=== PATIENT | male | born 1975 | race Caucasian/White ===

== ENCOUNTER 2018-01-21 07:03 | Emergency (ER) | payer OTHER ==
[~2018-01-21] VITALS: Ht 188 cm; Wt 97.7 kg
[2018-01-21] MEDS ORDERED: CEPH500 PO (08:03)
[2018-01-21 08:33] LABS: BASOPHILS % (AUTO) 0.4 % (0.0-2.0); EOSINOPHILS % (AUTO) 2.1 % (1.0-6.0); HEMATOCRIT 43.5 % (41-53); HEMOGLOBIN 14.8 g/dL (13.5-17.5); LYMPHOCYTES # (AUTO) 1.7 K/uL (1.0-4.8); LYMPHOCYTES % (AUTO) 28.4 % (22.0-44.0); MEAN CORPUSCULAR HEMOGLOBIN 29.6 pg (26.0-34.0); MEAN CORPUSCULAR VOLUME 87 fL (80-100); MONOCYTES # (AUTO) 0.4 K/uL (0.1-1.0); MONOCYTES % (AUTO) 7.1 % (2.0-9.0); NEUTROPHILS # (AUTO) 3.8 K/uL (1.8-7.7); PLATELET COUNT (AUTO) 222 K/uL (150-450); RED BLOOD CELL COUNT(AUTO) 4.99 MIL/uL (4.50-5.90); RED CELL DISTRIBUTION WIDTH 13.4 % (11.5-14.5)
[2018-01-21 08:44] LABS: AMPHET/METH SCREEN,URINE POSITIVE (NEGATIVE); BARBITURATE SCREEN, URINE NEGATIVE (NEGATIVE); BENZODIAZEPINES SCREEN,URINE NEGATIVE (NEGATIVE); CANNABINOID SCREEN,URINE NEGATIVE (NEGATIVE); COCAINE SCREEN,URINE NEGATIVE (NEGATIVE); METHADONE SCREEN, URINE NEGATIVE (NEGATIVE); OPIATE SCREEN,URINE NEGATIVE (NEGATIVE)
[2018-01-21 08:47] LABS: PHENCYCLIDINE SCREEN,URINE NEGATIVE (NEGATIVE)
[2018-01-21 08:51] LABS: ANION GAP 9 mmol/L (8-16); CALCIUM, TOTAL 8.8 mg/dL (8.8-10.5); CARBON DIOXIDE 27 mmol/L (22-29); CHLORIDE 107 mmol/L (98-107); CREATININE 0.75 mg/dL (0.60-1.30); GLOMERULAR FILTR. RATE CALC > 60 mL/min (>60); GLUCOSE,RANDOM 105 mg/dL (70-110); POTASSIUM 3.7 mmol/L (3.5-5.1); SODIUM SERUM 143 mmol/L (136-145); UREA NITROGEN, BLOOD 16 mg/dL (7-18)
[2018-01-21 08:58] LABS: ALANINE AMINOTRANSFERASE 38 U/L (12-78); ALBUMIN 3.8 g/dL (3.4-5.0); ALKALINE PHOSPHATASE 63 U/L (46-116); ASPARTATE AMINOTRANSFERASE 25 U/L (15-37); BILIRUBIN,TOTAL 0.5 mg/dL (0.1-1.0); TOTAL PROTEIN, SERUM 7.1 g/dL (6.4-8.2)
[2018-01-21 09:59] VITALS: BP 124/75
== END 2018-01-21 10:24 | disposition home or self-care (01) ==
LOC: EMS 07:05
DX: F31.9 Bipolar disorder, unspecified (principal); Z59.0 Homelessness
CPT/HCPCS: 36415; 80053; 80307; 85025; 99285; G0480

== ENCOUNTER 2018-06-04 11:27 | Inpatient (IN) | payer MEDICAID, OTHER ==
[~2018-06-04] VITALS: Ht 188 cm; Wt 94.8 kg
[~2018-06-04 11:27] MED LIST: CEPH500 PO
[2018-06-04 13:08] LABS: AMPHET/METH SCREEN,URINE POSITIVE (NEGATIVE); BARBITURATE SCREEN, URINE NEGATIVE (NEGATIVE); BENZODIAZEPINES SCREEN,URINE NEGATIVE (NEGATIVE); CANNABINOID SCREEN,URINE NEGATIVE (NEGATIVE); COCAINE SCREEN,URINE NEGATIVE (NEGATIVE); METHADONE SCREEN, URINE NEGATIVE (NEGATIVE); OPIATE SCREEN,URINE NEGATIVE (NEGATIVE)
[2018-06-04 13:09] LABS: PHENCYCLIDINE SCREEN,URINE NEGATIVE (NEGATIVE)
[2018-06-04 13:11] LABS: BASOPHILS % (AUTO) 0.7 % (0.0-2.0); EOSINOPHILS % (AUTO) 1.7 % (1.0-6.0); HEMATOCRIT 43.4 % (41-53); HEMOGLOBIN 14.6 g/dL (13.5-17.5); LYMPHOCYTES # (AUTO) 1.9 K/uL (1.0-4.8); LYMPHOCYTES % (AUTO) 27.4 % (22.0-44.0); MEAN CORPUSCULAR HEMOGLOBIN 29.2 pg (26.0-34.0); MEAN CORPUSCULAR HGB CONC 33.6 G/dL (31.0-37.0); MEAN CORPUSCULAR VOLUME 87 fL (80-100); MONOCYTES # (AUTO) 0.5 K/uL (0.1-1.0); MONOCYTES % (AUTO) 7.3 % (2.0-9.0); NEUTROPHILS # (AUTO) 4.3 K/uL (1.8-7.7); NEUTROPHILS % (AUTO) 62.9 % (40.0-70.0); PLATELET COUNT (AUTO) 232 K/uL (150-450); RED CELL DISTRIBUTION WIDTH 13.7 % (11.5-14.5)
[2018-06-04] MEDS ORDERED: ZOLPIDEM TARTRATE 10 MG TABLET PO PRN (13:15)
[2018-06-04] MEDS ORDERED: LORazepam 2 MG TABLET PO PRN (13:15)
[2018-06-04 13:23] LABS: ANION GAP 7 mmol/L (8-16); CALCIUM, TOTAL 8.9 mg/dL (8.8-10.5); CARBON DIOXIDE 29 mmol/L (22-29); CHLORIDE 107 mmol/L (98-107); CREATININE 0.97 mg/dL (0.60-1.30); GLOMERULAR FILTR. RATE CALC > 60 mL/min (>60); GLUCOSE,RANDOM 70 mg/dL (70-110); POTASSIUM 4.2 mmol/L (3.5-5.1); SODIUM SERUM 143 mmol/L (136-145); UREA NITROGEN, BLOOD 15 mg/dL (7-18)
[2018-06-04 13:29] LABS: ALANINE AMINOTRANSFERASE 36 U/L (12-78); ALBUMIN 3.5 g/dL (3.4-5.0); ALKALINE PHOSPHATASE 68 U/L (46-116); ASPARTATE AMINOTRANSFERASE 20 U/L (15-37); BILIRUBIN,TOTAL 0.6 mg/dL (0.1-1.0); TOTAL PROTEIN, SERUM 6.8 g/dL (6.4-8.2)
[2018-06-04 14:03] LABS: CHOL/HDL RATIO 2.2 (4.2-7.3); CHOLESTEROL 133 mg/dL (131-200); HDL CHOLESTEROL 60 mg/dL (40-60); LDL CHOL (CALC.) 57 mg/dL (0-130); TRIGLYCERIDES 78 mg/dL (15-150)
[2018-06-04 16:40] VITALS: BP 122/74
[2018-06-04] MEDS ORDERED: PNEUMOCOCCAL VACCINE POLYVALENT 0.5 ML VIAL [PPSV23] IM ONE (19:00)
[2018-06-04] MEDS ORDERED: CloNIDine HCL 0.1 MG TABLET PO PRN (19:30)
[2018-06-04] MEDS ORDERED: ACETAMINOPHEN 325 MG TABLET PO PRN (19:30)
[2018-06-04] MEDS ORDERED: PETROLATUM,WHITE 71 GM JELLY TP PRN (19:30)
[2018-06-04] MEDS ORDERED: ALBUTEROL SULFATE HFA 90 MCG/PUFF 8 GM INHALER IH PRN (19:30)
[2018-06-04] MEDS ORDERED: MAG HYDROX/AL HYDROX/SIMETH ES 30 ML SUSPENSION UDCUP PO PRN (19:30)
[2018-06-04] MEDS ORDERED: IBUPROFEN 400 MG TABLET PO PRN (19:30)
[2018-06-04] MEDS ORDERED: DOCUSATE SODIUM 100 MG CAPSULE PO PRN (19:30)
[2018-06-04] MEDS ORDERED: ONDANSETRON HCL 4 MG TABLET PO PRN (19:30)
[2018-06-04] MEDS ORDERED: MAGNESIUM HYDROXIDE SUSPENSION 30 ML UDCUP PO PRN (19:30)
[2018-06-04] MEDS ORDERED: LOPERAMIDE HCL 2 MG CAPSULE PO PRN (19:30)
[2018-06-05 08:30] VITALS: BP 152/74
[2018-06-05] MEDS: NICOTINE 14 MG/24 HOUR PATCH TD SCH (09:53)
[2018-06-05 20:57] VITALS: BP 132/72
[2018-06-06] MEDS: LORazepam 2 MG TABLET PO PRN ×2 (02:46→09:56)
[2018-06-06 08:30] VITALS: BP 128/70
[2018-06-06] MEDS: MULTIVITAMINS, THERAPEUTIC TABLET PO SCH (09:25)
[2018-06-06] MEDS: SERTRALINE HCL 50 MG TABLET PO SCH (09:25)
[2018-06-06] MEDS: NICOTINE 14 MG/24 HOUR PATCH TD SCH (09:27)
[2018-06-06] MEDS: HALOPERIDOL 5 MG TABLET PO PRN (09:56)
[2018-06-06 16:37] VITALS: BP 127/78
[2018-06-06] MEDS: OLANZapine 5 MG TABLET PO SCH (20:57)
[2018-06-07 08:05] VITALS: BP 112/63
[2018-06-07] MEDS: MULTIVITAMINS, THERAPEUTIC TABLET PO SCH (09:36)
[2018-06-07] MEDS: NICOTINE 14 MG/24 HOUR PATCH TD SCH (09:36)
[2018-06-07] MEDS: SERTRALINE HCL 50 MG TABLET PO SCH (09:36)
[2018-06-07] MEDS: OLANZapine 5 MG TABLET PO SCH ×2 (09:36→20:33)
[2018-06-07 19:19] VITALS: BP 113/72
[2018-06-08 08:05] VITALS: BP 119/69
[2018-06-08] MEDS: SERTRALINE HCL 50 MG TABLET PO SCH (08:26)
[2018-06-08] MEDS: OLANZapine 5 MG TABLET PO SCH ×2 (08:26→20:18)
[2018-06-08] MEDS: NICOTINE 14 MG/24 HOUR PATCH TD SCH (08:26)
[2018-06-08] MEDS: MULTIVITAMINS, THERAPEUTIC TABLET PO SCH (08:26)
[2018-06-08 18:00] VITALS: BP 110/60
[2018-06-09 08:05] VITALS: BP 126/78
[2018-06-09] MEDS: NICOTINE 14 MG/24 HOUR PATCH TD SCH (08:27)
[2018-06-09] MEDS: OLANZapine 5 MG TABLET PO SCH ×2 (08:27→20:37)
[2018-06-09] MEDS: MULTIVITAMINS, THERAPEUTIC TABLET PO SCH (08:27)
[2018-06-09] MEDS: SERTRALINE HCL 50 MG TABLET PO SCH (08:27)
[2018-06-09] MEDS: HALOPERIDOL 5 MG TABLET PO PRN (08:49)
[2018-06-09] MEDS: LORazepam 2 MG TABLET PO PRN (08:49)
[2018-06-09] MEDS ORDERED: LORazepam 1 MG TABLET PO PRN (11:00)
[2018-06-09 19:04] VITALS: BP 111/59
[2018-06-10] MEDS: OLANZapine 5 MG TABLET PO SCH (08:37)
[2018-06-10] MEDS: MULTIVITAMINS, THERAPEUTIC TABLET PO SCH (08:38)
[2018-06-10] MEDS: NICOTINE 14 MG/24 HOUR PATCH TD SCH (08:38)
[2018-06-10] MEDS: SERTRALINE HCL 50 MG TABLET PO SCH (08:38)
[2018-06-10 08:54] VITALS: BP 130/76
[2018-06-10] MEDS ORDERED: OLAN5TAB2 PO (10:09)
[2018-06-10] MEDS ORDERED: SERT50TA12 PO (10:09)
[2018-06-10] MEDS ORDERED: MULT-723 PO (10:09)
== END 2018-06-10 11:10 | disposition home or self-care (01) | DRG 751 ==
LOC: EMS 11:29 → B2S 15:34 → 3EI 20:02
DX: F33.2 Major depressive disorder, recurrent severe without psychotic features (principal); F20.0 Paranoid schizophrenia; R45.851 Suicidal ideations; I10 Essential (primary) hypertension; F41.9 Anxiety disorder, unspecified; C44.41 Basal cell carcinoma of skin of scalp and neck; F15.90 Other stimulant use, unspecified, uncomplicated; G47.00 Insomnia, unspecified; Z90.49 Acquired absence of other specified parts of digestive tract; Z59.0 Homelessness; Z79.899 Other long term (current) drug therapy; Z91.5 Personal history of self-harm
CPT/HCPCS: 99285; G0480

== ENCOUNTER 2018-07-08 20:08 | Emergency (ER) | payer MEDICAID ==
[~2018-07-08 20:08] MED LIST changes: -CEPH500 PO; +MULT-723 PO; +OLAN5TAB2 PO; +SERT50TA12 PO
== END 2018-07-08 20:14 | disposition left against medical advice (07) ==
LOC: EMS 20:13
DX: Z00.8 Encounter for other general examination (principal); Z53.21 Procedure and treatment not carried out due to patient leaving prior to being seen by health care provider